=== PATIENT | female | born 1975 | race African-American/Black ===

== ENCOUNTER 2021-03-13 19:52 | Emergency (ER) | payer OTHER ==
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
[2021-03-13] MEDS ORDERED: ACETAMINOPHEN 325 MG TABLET ONE (21:24)
--- NOTE | 2021-03-13 23:49 | EDPHYS ---
Physician Documentation [facility] Name: Caryn Willoughby Age: 45 yrs Sex: Female : 1975 Arrival Date: 03/13/2021 Time: 19:56 Bed IW1 Private MD: ED Physician Donaldo Flores HPI: 03/13 23:42 This 45 yrs old Black Female presents to ER via Ambulatory with complaints of Headache, pkl Nausea, Chills. 23:42 The patient complains of pain to the top of head and forehead. The patient describes pkl the headache as a pressure. Onset: The symptoms/episode began/occurred today. Associated signs and symptoms: Pertinent positives: fever, nausea, fatigue. Patient vaccinated for Covid in November 2020. 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-menopause kg Historical: - Allergies: 20:52 No Known Allergies; kg - Home Meds: 20:52 Folic acid [Active]; Vitamin B3 [Active]; Methotrexate (Anti-Rheumatic) 2.5 mg Oral tab kg once wkly [Active]; hydroxychloroquine 200 mg oral tab 1 tab once daily [Active]; hydrochlorothiazide 12.5 mg Oral tab once daily [Active]; losartan 100 mg oral tab 1 tab once daily [Active]; 20:59 Climara patch [Active]; kg - PMHx: 20:52 Hypertensive disorder; RA; kg - PSHx: 20:52 Back sx; kg - Immunization history:: Adult Immunizations not up to date, Client reports receiving the 1st dose of the Covid vaccine, November 04, 2020 Isai \Rosas\ Isai. - Social history:: Smoking status: Patient denies any tobacco usage or history of. ROS: 23:42 Eyes: Negative for injury, pain, redness, and discharge, ENT: Negative for injury, pkl pain, and discharge, Neck: Negative for injury, pain, and swelling, Cardiovascular: Negative for chest pain, palpitations, and edema, Respiratory: Negative for shortness of breath, cough, wheezing, and pleuritic chest pain. 23:42 Abdomen/GI: Positive for nausea. 23:42 Back: Negative for acute changes. 23:42 : Negative for urinary symptoms. 23:42 MS/extremity: Negative for acute changes. 23:42 Skin: Negative for rash. 23:42 Neuro: Positive for headache. Exam: 23:42 Head/Face: Normocephalic, atraumatic. Eyes: Pupils equal round and reactive to light, pkl extra-ocular motions intact. Lids and lashes normal. Conjunctiva and sclera are non-icteric and not injected. Cornea within normal limits. Periorbital areas with no swelling, redness, or edema. ENT: Nares patent. No nasal discharge, no septal abnormalities noted. Tympanic membranes are normal and external auditory canals are clear. Oropharynx with no redness, swelling, or masses, exudates, or evidence of obstruction, uvula midline. Mucous membranes moist. Neck: Trachea midline, no thyromegaly or masses palpated, and no cervical lymphadenopathy. Supple, full range of motion without nuchal rigidity, or vertebral point tenderness. No Meningismus. Chest/axilla: Normal chest wall appearance and motion. Nontender with no deformity. No lesions are appreciated. Cardiovascular: Regular rate and rhythm with a normal S1 and S2. No gallops, murmurs, or rubs. Normal PMI, no JVD. No pulse deficits. Respiratory: Lungs have equal breath sounds bilaterally, clear to auscultation and percussion. No rales, rhonchi or wheezes noted. No increased work of breathing, no retractions or nasal flaring. Abdomen/GI: Soft, non-tender, with normal bowel sounds. No distension or tympany. No guarding or rebound. No evidence of tenderness throughout. Back: No spinal tenderness. No costovertebral tenderness. Full range of motion. Skin: Warm, dry with normal turgor. Normal color with no rashes, no lesions, and no evidence of cellulitis. MS/ Extremity: Pulses equal, no cyanosis. Neurovascular intact. Full, normal range of motion. Neuro: Awake and alert, GCS 15, oriented to person, place, time, and situation. Cranial nerves II-XII grossly intact. Motor strength 5/5 in all extremities. Sensory grossly intact. Cerebellar exam normal. Normal gait. Vital Signs: 20:49 BP 130 / 95; Pulse 95; Resp 20; Temp 100.6(O); Pulse Ox 98% on R/A; Weight 126.1 kg kg (R); Height 6 ft. 0 in. (182.88 cm); Pain 7/10; 08/09 00:16 BP 128 / 78 RA Sitting (auto/reg); Pulse 86 RA; Resp 16 S; Temp 98.5(O); Pulse Ox 96% bs2 on R/A; Pain 0/10; 03/13 20:49 Body Mass Index 37.70 (126.10 kg, 182.88 cm) kg MDM: 03/13 23:42 Patient medically screened. pkl 23:42 Data reviewed: vital signs, nurses notes, lab test result(s). ED course: Discussed lab pkl results with patient. Advised quarantine for 10 days. Patient understood instructions. 03/13 20:51 Order name: Flu; Complete Time: 23:38 kg 03/13 22:50 Order name: SARS-COV-2 RT PCR; Complete Time: 23:38 EDMS Administered Medications: 03/14 00:17 Drug: Tylenol 650 mg Route: PO; bb Disposition Summary: 03/13/21 23:49 Discharge Ordered Location: Home pkl Problem: new pkl Symptoms: have improved pkl Condition: Stable pkl Diagnosis - Positive Covid 19 pkl Followup: pkl - With: Private Physician - When: 2 - 3 days - Reason: Re-evaluation by your physician Discharge Instructions: - Discharge Summary Sheet pkl Forms: - Medication Reconciliation Form pkl - Thank You Letter pkl - Antibiotic Education pkl - Prescription Opioid Use pkl Signatures: Dispatcher [employer] EDMS Donaldo Flores MD MD pkl Yaz Patino, RN RN bb Garrison Fernandez PA PA Brianne Stephenson RN RN kg Corrections: (The following items were deleted from the chart) 03/13 21:37 20:52 CORONAVIRUS+BRZ ordered. EDMS EDMS
--- NOTE | 2021-03-13 23:49 | ER ---
Nurse's Notes [facility] Name: Caryn Willoughby Age: 45 yrs Sex: Female : 1975 Arrival Date: 03/13/2021 Time: 19:56 Bed IW1 Private MD: Diagnosis: Positive Covid 19 Presentation: 03/13 20:49 Chief complaint: Patient states: Fever, fatigue, headache, nausea x 1 day. Coronavirus kg screen: Client denies travel out of the [place] in the last 14 days. At this time, unable to obtain information related to travel outside the [place] Client presents with at least one sign or symptom that may indicate coronavirus-19. Standard/surgical mask placed on the client. Provider contacted for isolation considerations. Ebola Screen: Patient negative for fever greater than or equal to 101.5 degrees Fahrenheit, and additional compatible Ebola Virus Disease symptoms Patient denies exposure to infectious person. Patient denies travel to an Ebola-affected area in the 21 days before illness onset. Initial Sepsis Screen: Does the patient meet any 2 criteria? No. Patient's initial sepsis screen is negative. Does the patient have a suspected source of infection? No. Patient's initial sepsis screen is negative. Risk Assessment: Do you want to hurt yourself or someone else? Patient reports no desire to harm self or others. Onset of symptoms was March 12, 2021. 20:49 Method Of Arrival: Ambulatory kg 20:49 Acuity: BIA 4 kg Triage Assessment: 20:52 Headache History: Other Dull constant. General: Appears in no apparent distress. kg Behavior is calm, cooperative, appropriate for age, quiet. Pain: Complains of pain in Head Pain currently is 7 out of 10 on a pain scale. at worst was 7 out of 10 on a pain scale. level that patient reports is acceptable is 3 out of 10 on a pain scale. Pain began 1 day ago. Also complains of nausea. 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 kg Historical: - Allergies: 20:52 No Known Allergies; kg - Home Meds: 20:52 Folic acid [Active]; Vitamin B3 [Active]; Methotrexate (Anti-Rheumatic) 2.5 mg Oral tab kg once wkly [Active]; hydroxychloroquine 200 mg oral tab 1 tab once daily [Active]; hydrochlorothiazide 12.5 mg Oral tab once daily [Active]; losartan 100 mg oral tab 1 tab once daily [Active]; 20:59 Climara patch [Active]; kg - PMHx: 20:52 Hypertensive disorder; RA; kg - PSHx: 20:52 Back sx; kg - Immunization history:: Adult Immunizations not up to date, Client reports receiving the 1st dose of the Covid vaccine, November 04, 2020 Isai \T\ Isai. - Social history:: Smoking status: Patient denies any tobacco usage or history of. Screenin:58 Abuse screen: Denies threats or abuse. Denies injuries from another. Nutritional kg screening: No deficits noted. Tuberculosis screening: No symptoms or risk factors identified. Fall Risk None identified. Assessment: 03/14 00:24 General: pt seen by this RN at discharge pt is A\T\O x 4, resp unlabored, verbalized bb understanding of and agrees to plan of care discharge instructions given pt ambulated with steady gait to exit. Vital Signs: 03/13 20:49 BP 130 / 95; Pulse 95; Resp 20; Temp 100.6(O); Pulse Ox 98% on R/A; Weight 126.1 kg kg (R); Height 6 ft. 0 in. (182.88 cm); Pain 7/10; 03/14 00:16 BP 128 / 78 RA Sitting (auto/reg); Pulse 86 RA; Resp 16 S; Temp 98.5(O); Pulse Ox 96% bs2 on R/A; Pain 0/10; 03/13 20:49 Body Mass Index 37.70 (126.10 kg, 182.88 cm) kg ED Course: 03/13 19:56 Patient arrived in ED. bp1 20:50 Triage completed. kg 20:58 Patient has correct armband on for positive identification. kg 23:42 Donaldo Flores MD is Attending Physician. pkl 03/14 00:23 Yaz Patino, RYANNE is Primary Nurse. bb 00:24 No provider procedures requiring assistance completed. Patient did not have IV access bb during this emergency room visit. Administered Medications: 00:17 Drug: Tylenol 650 mg Route: PO; bb Outcome: 03/13 23:49 Discharge ordered by . pkl 03/14 00:24 Discharged to home ambulatory. bb Condition: stable Discharge instructions given to patient, Instructed on discharge instructions, follow up and referral plans. Demonstrated understanding of instructions, follow-up care. 00:26 Patient left the ED. bb Signatures: Donaldo Flores MD MD pkl Yaz Patino, RN RN Anyi Escobar Kristen RN RN kg Alisa Jenkins, RN RN bs2
[2021-03-14] MEDS ORDERED: ACETAMINOPHEN 325 MG TABLET ONE (00:31)
[2021-03-14 00:57] VITALS: BP 128/78; TEMP 98.5; O2SAT 96
== END 2021-03-14 00:26 | disposition home or self-care (01) ==
LOC: ER 19:52
DX: U07.1 COVID-19 (principal); I10 Essential (primary) hypertension
CPT/HCPCS: 87804 ×2; 99283; U0003

== ENCOUNTER 2021-05-10 22:46 | Emergency (ER) | payer OTHER ==
--- NOTE | 2021-05-11 00:27 | EDPHYS ---
Physician Documentation [facility] Name: Caryn Willoughby Age: 46 yrs Sex: Female : 1975 Arrival Date: 05/10/2021 Time: 22:50 Bed 20 Private MD: ED Physician Emile Lawson HPI: 05/11 00:25 This 46 yrs old Black Female presents to ER via Wheelchair with complaints of Knee ma2 Injury, Knee Pain, UNABLE TO PUT PRESSURE ON KNEE OR STAND. 00:25 The patient presents with decreased range of motion. The complaints affect the lateral ma2 aspect of right knee. Onset: The symptoms/episode began/occurred suddenly, 1 hour(s) ago. Associated signs and symptoms: Pertinent negatives nausea, swelling, vomiting. Severity of symptoms: At their worst the symptoms were moderate, in the emergency department the symptoms are unchanged. The patient has not experienced similar symptoms in the past. 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 - Social history:: Smoking status: Patient denies any tobacco usage or history of. - Family history:: not pertinent. ROS: 05/11 00:25 Constitutional: Negative for fever, chills, and weight loss. ma2 All other systems are negative. Exam: 00:25 Constitutional: This is a well developed, well nourished patient who is awake, alert, ma2 and in no acute distress. Head/Face: Normocephalic, atraumatic. Eyes: Pupils equal round and reactive to light, extra-ocular motions intact. Lids and lashes normal. Conjunctiva and sclera are non-icteric and not injected. Cornea within normal limits. Periorbital areas with no swelling, redness, or edema. ENT: Nares patent. No nasal discharge, no septal abnormalities noted. Tympanic membranes are normal and external auditory canals are clear. Oropharynx with no redness, swelling, or masses, exudates, or evidence of obstruction, uvula midline. Mucous membranes moist. Neck: Trachea midline, no thyromegaly or masses palpated, and no cervical lymphadenopathy. Supple, full range of motion without nuchal rigidity, or vertebral point tenderness. No Meningismus. Chest/axilla: Normal chest wall appearance and motion. Nontender with no deformity. No lesions are appreciated. Cardiovascular: Regular rate and rhythm with a normal S1 and S2. No gallops, murmurs, or rubs. Normal PMI, no JVD. No pulse deficits. Respiratory: Lungs have equal breath sounds bilaterally, clear to auscultation and percussion. No rales, rhonchi or wheezes noted. No increased work of breathing, no retractions or nasal flaring. Abdomen/GI: Soft, non-tender, with normal bowel sounds. No distension or tympany. No guarding or rebound. No evidence of tenderness throughout. Back: No spinal tenderness. No costovertebral tenderness. Full range of motion. Skin: Warm, dry with normal turgor. Normal color with no rashes, no lesions, and no evidence of cellulitis. MS/ Extremity: Pulses equal, no cyanosis. Neurovascular intact. Full, normal range of motion. Neuro: Awake and alert, GCS 15, oriented to person, place, time, and situation. Cranial nerves II-XII grossly intact. Motor strength 5/5 in all extremities. Sensory grossly intact. Cerebellar exam normal. Normal gait. Vital Signs: 05/10 23:26 BP 144 / 94; Pulse 88; Resp 18; Temp 98.0; Pulse Ox 99% on R/A; Weight 113.4 kg; Height df1 6 ft. 0 in. (182.88 cm); Pain 10/10; 05/11 00:00 BP 136 / 87; Pulse 83; Resp 18; Pulse Ox 99% ; Pain 6/10; kc4 01:03 BP 130 / 78; Pulse 85; Resp 18; Pulse Ox 99% on R/A; Pain 0/10; df1 05/10 23:26 Body Mass Index 33.91 (113.40 kg, 182.88 cm) df1 MDM: 00:03 Patient medically screened. ma2 00:25 Differential diagnosis: dislocation, closed fracture, contusion, abrasion. Data ma2 reviewed: vital signs, nurses notes. Counseling: I had a detailed discussion with the patient and/or guardian regarding: the historical points, exam findings, and any diagnostic results supporting the discharge/admit diagnosis, the presence of at least one elevated blood pressure reading (>120/80) during this emergency department visit, the need for outpatient follow up. Response to treatment: the patient's symptoms have markedly improved after treatment. 05/10 23:33 Order name: XRAY Knee RIGHT 3 view df1 05/11 00:13 Order name: Knee Immobilizer; Complete Time: 00:35 ma2 05/11 00:13 Order name: Crutches; Complete Time: 00:35 ma2 Administered Medications: 00:35 Drug: [place] (HYDROcodone-acetaminophen) (7.5 mg-325 mg) 1 tabs Route: PO; kc4 01:00 Follow up: Response: No change in condition; Pt has just recieved pain med, states dc2 hasn't felt it take affect yet. Disposition Summary: 05/11/21 00:26 Discharge Ordered Location: Home ma2 Condition: Stable ma2 Diagnosis - Sprain of other specified parts of right knee ma2 Followup: ma2 - With: Private Physician - When: Tomorrow - Reason: Continuance of care Discharge Instructions: - Discharge Summary Sheet ma2 - Knee Sprain, Adult, [id number] ma2 Forms: - Medication Reconciliation Form ma2 - Thank You Letter ma2 - Antibiotic Education ma2 - Prescription Opioid Use ma2 Prescriptions: - Diclofenac Sodium 75 mg Oral Tablet Sustained Release - take 1 tablet by ORAL route 2 times per day; 30 tablet; Refills: 0, Product ma2 Selection Permitted Signatures: Dispatcher [employer] EDMS Emile Lawson MD MD ma2 Clare Hitchcock kc4 Leona Smith df1 Jere, Ene PEARL dc2
--- NOTE | 2021-05-11 00:27 | ER ---
Nurse's Notes [facility] Name: Caryn Willoughby Age: 46 yrs Sex: Female : 1975 Arrival Date: 05/10/2021 Time: 22:50 Bed 20 Private MD: Diagnosis: Sprain of other specified parts of right knee Presentation: 05/10 23:26 Chief complaint: Patient states: right knee injury. Coronavirus screen: Vaccine status: df1 Patient reports receiving the 2nd dose of the covid vaccine. Client reports previous positive COVID test result. Date of collection: March 13, 2021. Ebola Screen: Patient negative for fever greater than or equal to 101.5 degrees Fahrenheit, and additional compatible Ebola Virus Disease symptoms Patient denies exposure to infectious person. Patient denies travel to an Ebola-affected area in the 21 days before illness onset. Initial Sepsis Screen: Does the patient meet any 2 criteria? No. Patient's initial sepsis screen is negative. Risk Assessment: Do you want to hurt yourself or someone else? Patient reports no desire to harm self or others. Onset of symptoms was May 10, 2021 at 22:00. 23:26 Method Of Arrival: Wheelchair df1 23:26 Acuity: BIA 4 df1 23:31 Note Pt states at 2200, step on something and right knee "gave out". Denies falling. df1 ROM normal but unable to bear weight to right leg. MSP's intact. 23:51 Initial Sepsis Screen: Does the patient have a suspected source of infection? No. df1 Patient's initial sepsis screen is negative. 05/11 01:05 Note Pt demonstrated crutch use. Pt educated with knee immobilizer. No further df1 questions voiced. Pt educated about RICE. Triage Assessment: 05/10 23:48 General: Appears in no apparent distress. Behavior is calm, cooperative. Pain: df1 Complains of pain in right leg. Musculoskeletal: No signs and/or symptoms reported regarding the musculoskeletal system. Circulation, motion, and sensation intact. Swelling present in right leg Reports pain in right leg Parent/caregiver report the patient having. 23:50 Injury Description: Right knee gave out per pt. Denies falling on the right knee. ROM df1 intact. Unable to bear weight to right. 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 - Social history:: Smoking status: Patient denies any tobacco usage or history of. - Family history:: not pertinent. Screenin:47 Abuse screen: Denies threats or abuse. Nutritional screening: No deficits noted. df1 Tuberculosis screening: No symptoms or risk factors identified. Fall Risk None identified. Assessment: 05/11 00:05 General: Appears in no apparent distress. uncomfortable, obese, well groomed, well kc4 developed, Behavior is calm, cooperative. Pain: Complains of pain in Posterior right knee Pain currently is 6 out of 10 on a pain scale. Quality of pain is described as stabbing, Pain began 30 min ago. Is continuous. Neuro: No deficits noted. Cardiovascular: No deficits noted. Respiratory: No deficits noted. : No signs and/or symptoms were reported regarding the genitourinary system. Musculoskeletal: Reports pain in posterior right knee, states pain just started about 30 minutes ago. Vital Signs: 05/10 23:26 BP 144 / 94; Pulse 88; Resp 18; Temp 98.0; Pulse Ox 99% on R/A; Weight 113.4 kg; Height df1 6 ft. 0 in. (182.88 cm); Pain 10/10; 05/11 00:00 BP 136 / 87; Pulse 83; Resp 18; Pulse Ox 99% ; Pain 6/10; kc4 01:03 BP 130 / 78; Pulse 85; Resp 18; Pulse Ox 99% on R/A; Pain 0/10; df1 05/10 23:26 Body Mass Index 33.91 (113.40 kg, 182.88 cm) df1 ED Course: 05/10 22:50 Patient arrived in ED. cf2 23:28 Triage completed. df1 23:49 Arm band placed on right wrist. df1 23:51 Patient has correct armband on for positive identification. df1 23:58 Ene Oquendo, RN is Primary Nurse. dc2 23:58 X-ray(s) taken. dc2 05/11 00:03 Emile Lawson MD is Attending Physician. ma2 00:03 XRAY Knee RIGHT 3 view Sent. bs2 00:05 ED physician to see patient. kc4 00:14 XRAY Knee RIGHT 3 view In Process Unspecified. EDMS 01:04 No provider procedures requiring assistance completed. Patient did not have IV access df1 during this emergency room visit. Administered Medications: 00:35 Drug: [place] (HYDROcodone-acetaminophen) (7.5 mg-325 mg) 1 tabs Route: PO; kc4 01:00 Follow up: Response: No change in condition; Pt has just recieved pain med, states dc2 hasn't felt it take affect yet. Intake: Outcome: 00:26 Discharge ordered by . ma2 01:04 Discharged to home with crutches. df1 01:04 Condition: good 01:04 Discharge instructions given to patient, Instructed on discharge instructions, follow up and referral plans. medication usage, crutch walking, Demonstrated understanding of instructions, follow-up care, medications, Prescriptions given X 1. 01:06 Patient left the ED. df1 Signatures: Dispatcher [employer] EDMS Emile Lawson MD MD ma2 Gregorio Elizabeth cf2 Alisa Jenkins RN RN bs2 Clare Hitchcock 4 Leona Smith df1 Ene Oquendo, RN RN dc2
[2021-05-11] MEDS ORDERED: HYDROCODONE/APAP 7.5/325 MG TAB ONE ×2 (00:48→00:55)
[2021-05-11 01:19] VITALS: TEMP 98; O2SAT 99
[2021-05-11 01:22] VITALS: BP 130/78
--- NOTE | 2021-05-11 07:29 | RAD REPORT ---
EXAM DESCRIPTION: RAD - Knee Right 3 View - 05/11/2021 12:14 am CLINICAL HISTORY: PAIN COMPARISON: No comparisons FINDINGS: Portable two-view knee examination performed. No fracture, dislocation or periosteal react ion.Lateral view is not optimally positioned. No large joint effusion present. Patient has medial and lateral compartment marginal spurring with spurring along the tibial spine and intercondylar notch. Patella marginal spurring present. No joint space narrowing. No foreign body or other soft tissue abn ormality. IMPRESSION: Tri compartment mild degenerative change as detailed. No acute bone or joint finding con firmed. Clinical concerns for internal derangement or occult bony injury could be further assessed with MR im aging.
== END 2021-05-11 01:06 | disposition home or self-care (01) ==
LOC: ER 22:46
DX: S83.8X1A Sprain of other specified parts of right knee, initial encounter (principal); I10 Essential (primary) hypertension
CPT/HCPCS: 99284

== ENCOUNTER 2021-09-29 09:57 | Day surgery (SDC) | payer OTHER ==
[2021-09-29] MEDS ORDERED: Ringers Lactate 1,000 ML IV ONE (10:19)
[2021-09-29] MEDS ORDERED: ONDANSETRON 4 MG/2 ML VIAL ONE ×2 (11:33→12:53)
[2021-09-29] MEDS ORDERED: LIDOCAINE 1% MPF 5 ML VIAL ONE (11:33)
[2021-09-29] MEDS ORDERED: FENTANYL CITR 100 MCG/2 ML ONE (11:33)
[2021-09-29] MEDS ORDERED: MIDAZOLAM HCL 2 MG/2 ML INJ ONE (11:33)
[2021-09-29] MEDS ORDERED: propofoL 200 MG/20 ML VIAL IV ONE (11:33)
[2021-09-29] MEDS ORDERED: GLYCOPYRROLATE 0.2 MG/ML SYR ONE (12:07)
[2021-09-29] MEDS ORDERED: dexAMETHasone 10 MG/ML VIAL ONE (12:09)
[2021-09-29] MEDS ORDERED: KETOROLAC 30 MG/ML INJ ONE (12:30)
[2021-09-29] MEDS ORDERED: HYDROCODONE/APAP 5/325 MG TAB PO PRN (12:46)
[2021-09-29] MEDS: HYDROMORPHONE HCL 1 MG/ML INJ ONE ×4 (12:46→13:13)
--- NOTE | 2021-09-29 12:49 | P.BOP ---
Preoperative diagnosis: AUB-P Postoperative diagnosis: same, endometrial polyp Primary procedure: hysterscopy polypectomy d/c Manager [place]: NONE,NONE Estimated blood loss: min Specimen: polyps x2 and EMC Findings: polyps x2, slight irregularity left cornual end Anesthesia: General Complications: None Transferred to: Recovery Room Condition: Good
[2021-09-29] MEDS ORDERED: HYDROCODONE/APAP 5/325 MG TAB ONE (13:25)
[2021-09-29 14:48] VITALS: BP 144/90; TEMP 96.4; O2SAT 98
[2021-09-29] MEDS ORDERED: HYDROXYCHLOROQUINE 200MG TAB PO SCH (21:00)
[2021-09-30] MEDS ORDERED: HOME MED 1 EA UNK (Gabapentin [Gabapentin] 600 MG Tablet) PO SCH (09:00)
[2021-09-30] MEDS ORDERED: METHOTREXATE 2.5 MG TAB PO SCH (09:00)
[2021-09-30] MEDS ORDERED: AMLODIPINE 5 MG TAB PO SCH (09:00)
[2021-09-30] MEDS ORDERED: FOLIC ACID 1 MG TABLET PO SCH (09:00)
[2021-09-30] MEDS ORDERED: FUROSEMIDE 40 MG TABLET PO SCH (09:00)
--- NOTE | 2021-09-30 10:32 | OP ---
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 Preoperative Diagnosis: Abnormal uterine bleeding - polyp. Postoperative Diagnosis: Abnormal uterine bleeding - polyp. Procedures Performed: Hysteroscopy, polypectomy with MyoSure Lite, dilatation and curettage. Anesthesia: General with LMA. Specimens Removed: Polyps x2 and endometrial curettings. Complications: No complications. Condition: The patient's condition is stable. Estimated Blood Loss: Minimal. Findings: Polyps x2, posterior wall and then left wall posterior end of the posterior jada yp, slightly irregular left cornual end. Endometrium probably thickened. Indications: The patient is a 46-year-old female with abnormal bleeding, evaluated by and uterine lining was thickened. Cavity evaluation in the office showed endometrial polyp, so she was consented for hysteroscopy, D and C, polypectomy in the hospital and brought to the OR. Procedure In Detail: After informed consent was verified, she was taken back to OR, placed in a supi ne fashion on the operating table when general anesthesia was given. After positioning in the dorsal supine position, vulva and vagina were prepped and draped in a sterile fashion. A speculum was plac ed to expose the cervix to paracervical block. Anterior lip grasped with 2 Allis clamps. Diagnostic hysteroscopy was performed to the cervical canal and uterine cavity after dilating the ce rvix. 18-[place] polyps were seen. Entire cavity was visualized using the MyoSure Lite device. The polypectomy and endometrial sampling were performed in the global endometrial cavity. After adequate sampling, scope was removed. Instrument, needle, and sponge counts were correct at the end of the c ase. The patient tolerated the procedure well. One week follow up in the office for Pap results. DONNIE/WES Voice ID: [id number] Report ID: [id number]
== END 2021-09-29 13:50 | disposition home or self-care (01) ==
LOC: OR 09:57
PROVIDERS: ATTEND Obstetrics & Gynecology
PROC: 0UDB7ZX Extraction of Endometrium, Via Natural or Artificial Opening, Diagnostic (ICD-10-PCS; 2021-09-29)
PROC: 0UJD8ZZ Inspection of Uterus and Cervix, Via Natural or Artificial Opening Endoscopic (ICD-10-PCS; 2021-09-29)
PROC: 0UB97ZX Excision of Uterus, Via Natural or Artificial Opening, Diagnostic (ICD-10-PCS; principal; 2021-09-29 11:30)
DX: N84.0 Polyp of corpus uteri (principal); N95.0 Postmenopausal bleeding; I10 Essential (primary) hypertension; N95.1 Menopausal and female climacteric states; N71.1 Chronic inflammatory disease of uterus; Z20.822 Contact with and (suspected) exposure to COVID-19
CPT/HCPCS: 36415; 84703; 88305; 58558; U0002; J2704; J2250; J3010; J1100; J1170 ×2; J7120; J2405 ×2